=== PATIENT | male | born 1995 | race Caucasian/White ===

== ENCOUNTER 2019-12-21 11:31 | Emergency (ER) | payer MEDICAID ==
[~2019-12-21] VITALS: Ht 167.6 cm; Wt 49.9 kg
[2019-12-21 11:35] VITALS: BP_SYST 144
--- NOTE | 2019-12-21 11:38 | NUR ---
Patient to ER bed 04 to gown for evaluation. Side rails up.
[2019-12-21] MEDS ORDERED: PREDNISONE 20 MG TABLET PO ONE (11:45)
[2019-12-21] MEDS ORDERED: DIPHENHYDRAMINE INJ 50 MG/ML VIAL IM ONE (11:45)
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
--- NOTE | 2019-12-21 11:51 | NUR ---
BENADRYL 50MG IM GIVEN PREDNISONE 60MG PO GIVEN ASKED TO CALL SOMEONE TO TAKE HIM HOME PER MD
--- NOTE | 2019-12-21 12:20 | NUR ---
PATIENT DRESSED, DISCHARGE INSTRUCTIONS GIVEN AND UNDERSTOOD SCRIPTS X2 GIVEN AND D/C INST PT AMBULATED TO WAITING ROOM TO WAIT FOR RIDE
== END 2019-12-21 12:16 | disposition home or self-care (01) ==
LOC: SED 11:31
DX: L50.9 Urticaria, unspecified (principal)
CPT/HCPCS: 96372; 99283; J1200; J7512